=== PATIENT | female | born 1955 | race Caucasian/White ===

== ENCOUNTER 2018-12-24 00:26 | Emergency (ER) | payer MEDICARE, MEDICAID ==
--- NOTE | 2018-12-24 00:28 | ER Report ---
History and Physical Time Seen By MD: 00:26 HPI/ROS CHIEF COMPLAINT: Shortness of breath HISTORY OF PRESENT ILLNESS: 63-year-old female with a history of cardiac ablation 3 and COPD O2 dependent on 4 L at night. Presents with increasing shortness of breath since this afternoon. She denies chest pain, diaphoresis or leg swelling. She denies infectious symptoms or productive cough. Patient recently moved here to [facility] from [place]. Patient admits she is on by 10 or 12 medications. She forgot to bring her medications with her to the hospital. She does remember that she is on Bumex. She forgot to take her Bumex yesterday. REVIEW OF SYSTEMS: Respiratory: As above Cardiovascular: No chest pain, no palpitations. Gastrointestinal: No vomiting, no abdominal pain. Musculoskeletal: No back pain. Allergies: Coded Allergies: Sulfa (Sulfonamide Antibiotics) (Verified Allergy, Severe, RASH, SWELLING, 12/24/18) cefazolin (Verified Allergy, Severe, RASH, SWELLING, 12/24/18) Penicillins (Verified Allergy, Unknown, RASH, SWELLING, 12/24/18) Home Meds Active Scripts Prednisone (PREDNISONE) 20 Mg Tablet, 20 MG PO QDAY for reduce lung inflammation, #9 TAB 2 by mouth daily for 3 days then 1 by mouth daily for 3 days Prov:FLOYD MONTES DE OCA DO 12/24/18 Reviewed Nurses Notes: Yes Old Medical Records Reviewed: Yes Constitutional Vital Sign - Last 24 Hours 12/24/18 12/24/18 12/24/18 12/24/18 00:31 00:32 00:41 00:41 Temp 98.6 Pulse 89 83 Resp 28 31 B/P (MAP) 190/91 190/91 (124) Pulse Ox 61 96 O2 Delivery Room Air O2 Flow Rate 6.0 12/24/18 12/24/18 12/24/18 12/24/18 00:44 00:46 00:56 01:00 Pulse 82 84 87 Resp 30 24 10 B/P (MAP) 174/88 (116) Pulse Ox 91 12/24/18 12/24/18 12/24/18 12/24/18 01:20 01:30 01:35 01:50 Pulse 87 88 87 Resp 12 8 17 B/P (MAP) 172/108 (129) Pulse Ox 91 96 92 612/24/18 12/24/18 12/24/18 02:00 02:05 02:20 02:35 Pulse 86 87 105 B/P (MAP) 158/96 (116) Pulse Ox 93 12/24/18 12/24/18 12/24/18 12/24/18 03:00 03:20 03:35 03:36 Pulse 89 90 89 Resp 26 12 24 B/P (MAP) 163/99 (120) Pulse Ox 99 97 12/24/18 12/24/18 12/24/18 12/24/18 03:40 03:41 03:54 03:55 Pulse 91 88 93 Resp 14 24 34 B/P (MAP) 136/96 (109) Pulse Ox 96 95 12/24/18 12/24/18 12/24/18 12/24/18 03:57 04:00 04:03 04:10 Pulse 101 B/P (MAP) 136/112 (120) 157/96 (116) O2 Flow Rate 4.0 12/24/18 12/24/18 04:20 04:25 Pulse 92 Resp 11 B/P (MAP) 168/95 (119) Physical Exam General Appearance: The patient is alert, has no immediate need for airway protection and no current signs of toxicity. Obvious air hunger, increased work of breathing. Patient arrived without wearing supplemental O2. Room air pulse ox was 61% on room air. She was placed on 6 L to get to 89%. A Shantz slightly pale and diaphoretic HEENT: Pupils equal and round no injection. Oropharynx without redness or exudate, mucous. Membranes are moist Respiratory: Chest is non tender, decreased breath sounds throughout., No rhonchi or rails Cardiac: regular rate and rhythm Gastrointestinal: Abdomen is soft and non tender, no masses, bowel sounds normal. Musculoskeletal: Neck: Neck is supple and non tender. No JVD, no lymphadenopathy Extremities have full range of motion and are non tender. No edema, no calf tenderness Skin: No rashes or lesions. DIFFERENTIAL DIAGNOSIS: After history and physical exam differential diagnosis was considered for shortness of breath including but not limited to pulmonary infectious process, COPD, asthma, pulmonary embolus and congestive heart failure. Medical Decision Making Data Points Result Diagram: 12/24/18 0055 12/24/18 0055 Laboratory Hematology Test 12/24/18 00:55 12/24/18 03:09 Red Blood Count 4.29 M/uL (4.17-5.56) Mean Corpuscular Volume 84.4 fL (80.0-96.0) Mean Corpuscular Hemoglobin 28.0 pg (26.0-33.0) Mean Corpuscular Hemoglobin Concent 33.2 g/dL (32.0-36.0) Red Cell Distribution Width 16.6 % (11.5-14.5) Mean Platelet Volume 8.0 fL (7.2-11.1) Neutrophils (%) (Auto) 80.5 % (39.4-72.5) Lymphocytes (%) (Auto) 12.7 % (17.6-49.6) Monocytes (%) (Auto) 4.5 % (4.1-12.4) Eosinophils (%) (Auto) 1.2 % (0.4-6.7) Basophils (%) (Auto) 1.1 % (0.3-1.4) Nucleated RBC Relative Count (auto) 0.0 /100WBC Neutrophils # (Auto) 7.4 K/uL (2.0-7.4) Lymphocytes # (Auto) 1.2 K/uL (1.3-3.6) Monocytes # (Auto) 0.4 K/uL (0.3-1.0) Eosinophils # (Auto) 0.1 K/uL (0.0-0.5) Basophils # (Auto) 0.1 K/uL (0.0-0.1) Nucleated RBC Absolute Count (auto) 0.00 K/uL D-Dimer Quantitative (PE/DVT) 0.72 ug/ml (0-0.50) Sodium Level 140 mmol/L (137-145) Potassium Level 3.7 mmol/L (3.5-5.0) Chloride Level 101 mmol/L (98-107) Carbon Dioxide Level 31 mmol/L (22-31) Blood Urea Nitrogen 13 mg/dl (7-18) Creatinine 0.50 mg/dl (0.52-1.04) Glomerular Filtration Rate Calc > 60.0 Random Glucose 274 mg/dl (75-110) Lactate 1.8 mmol/L (0.7-2.1) Calcium Level 8.6 mg/dl (8.4-10.2) Total Bilirubin 1.6 mg/dl (0.2-1.3) Aspartate Amino Transf (AST/SGOT) 17 U/L (0-35) Alanine Aminotransferase (ALT/SGPT) 36 U/L (0-56) Alkaline Phosphatase 169 U/L (0-126) Troponin I < 0.012 ng/ml B-Type Natriuretic Peptide 242 pg/ml (0-100) Total Protein 6.5 g/dl (6.3-8.2) Albumin 3.7 g/dl (3.5-5.0) Urine Color Straw Urine Clarity Clear Urine pH 5.0 pH (4.8-9.5) Urine Specific [place] 1.014 Urine Protein Negative mg/dL (NEGATIVE) Urine Glucose (UA) 50 mg/dL (NEGATIVE) Urine Ketones Negative mg/dL (NEGATIVE) Urine Blood Negative (NEGATIVE) Urine Nitrite Negative (NEGATIVE) Urine Bilirubin Negative (NEGATIVE) Urine Urobilinogen Negative mg/dL (0.2-1.9) Urine Leukocyte Esterase Negative (NEGATIVE) Urine RBC None /HPF (0-2/HPF) Urine WBC <1 /HPF (0-5/HPF) Urine Squamous Epithelial Cells Many /LPF (</=FEW) Urine Transitional Epithelial Cells Few /LPF (NONE-FEW) Urine Bacteria Negative /HPF (NONE-FEW) Urine Mucus None /HPF (NONE-FEW) Chemistry Test 12/24/18 00:55 12/24/18 03:09 White Blood Count 9.2 k/uL (4.5-11.0) Red Blood Count 4.29 M/uL (4.17-5.56) Hemoglobin 12.0 g/dL (12.0-16.0) Hematocrit 36.2 % (34.0-47.0) Mean Corpuscular Volume 84.4 fL (80.0-96.0) Mean Corpuscular Hemoglobin 28.0 pg (26.0-33.0) Mean Corpuscular Hemoglobin Concent 33.2 g/dL (32.0-36.0) Red Cell Distribution Width 16.6 % (11.5-14.5) Platelet Count 313 K/uL (150-450) Mean Platelet Volume 8.0 fL (7.2-11.1) Neutrophils (%) (Auto) 80.5 % (39.4-72.5) Lymphocytes (%) (Auto) 12.7 % (17.6-49.6) Monocytes (%) (Auto) 4.5 % (4.1-12.4) Eosinophils (%) (Auto) 1.2 % (0.4-6.7) Basophils (%) (Auto) 1.1 % (0.3-1.4) Nucleated RBC Relative Count (auto) 0.0 /100WBC Neutrophils # (Auto) 7.4 K/uL (2.0-7.4) Lymphocytes # (Auto) 1.2 K/uL (1.3-3.6) Monocytes # (Auto) 0.4 K/uL (0.3-1.0) Eosinophils # (Auto) 0.1 K/uL (0.0-0.5) Basophils # (Auto) 0.1 K/uL (0.0-0.1) Nucleated RBC Absolute Count (auto) 0.00 K/uL D-Dimer Quantitative (PE/DVT) 0.72 ug/ml (0-0.50) Glomerular Filtration Rate Calc > 60.0 Lactate 1.8 mmol/L (0.7-2.1) Calcium Level 8.6 mg/dl (8.4-10.2) Total Bilirubin 1.6 mg/dl (0.2-1.3) Aspartate Amino Transf (AST/SGOT) 17 U/L (0-35) Alanine Aminotransferase (ALT/SGPT) 36 U/L (0-56) Alkaline Phosphatase 169 U/L (0-126) Troponin I < 0.012 ng/ml B-Type Natriuretic Peptide 242 pg/ml (0-100) Total Protein 6.5 g/dl (6.3-8.2) Albumin 3.7 g/dl (3.5-5.0) Urine Color Straw Urine Clarity Clear Urine pH 5.0 pH (4.8-9.5) Urine Specific [place] 1.014 Urine Protein Negative mg/dL (NEGATIVE) Urine Glucose (UA) 50 mg/dL (NEGATIVE) Urine Ketones Negative mg/dL (NEGATIVE) Urine Blood Negative (NEGATIVE) Urine Nitrite Negative (NEGATIVE) Urine Bilirubin Negative (NEGATIVE) Urine Urobilinogen Negative mg/dL (0.2-1.9) Urine Leukocyte Esterase Negative (NEGATIVE) Urine RBC None /HPF (0-2/HPF) Urine WBC <1 /HPF (0-5/HPF) Urine Squamous Epithelial Cells Many /LPF (</=FEW) Urine Transitional Epithelial Cells Few /LPF (NONE-FEW) Urine Bacteria Negative /HPF (NONE-FEW) Urine Mucus None /HPF (NONE-FEW) Coagulation Test 12/24/18 00:55 D-Dimer Quantitative (PE/DVT) 0.72 ug/ml Urinalysis Test 12/24/18 03:09 Urine Color Straw Urine Clarity Clear Urine pH 5.0 pH (4.8-9.5) Urine Specific [place] 1.014 Urine Protein Negative mg/dL (NEGATIVE) Urine Glucose (UA) 50 mg/dL (NEGATIVE) Urine Ketones Negative mg/dL (NEGATIVE) Urine Blood Negative (NEGATIVE) Urine Nitrite Negative (NEGATIVE) Urine Bilirubin Negative (NEGATIVE) Urine Urobilinogen Negative mg/dL (0.2-1.9) Urine Leukocyte Esterase Negative (NEGATIVE) Urine RBC None /HPF (0-2/HPF) Urine WBC <1 /HPF (0-5/HPF) Urine Squamous Epithelial Cells Many /LPF (</=FEW) Urine Transitional Epithelial Cells Few /LPF (NONE-FEW) Urine Bacteria Negative /HPF (NONE-FEW) Urine Mucus None /HPF (NONE-FEW) Microbiology Microbiology Date/Time Source Procedure Growth Status 12/24/18 01:25 Blood Peripheral Draw Blood Culture - Preliminary NO GROWTH SO FAR, SET LATE. REINCUBATED Resulted 12/24/18 00:55 Blood Peripheral Draw Blood Culture - Preliminary NO GROWTH SO FAR, SET LATE. REINCUBATED Resulted EKG/Imaging EKG Interpretation 12 lead EK Rhythm: Normal sinus rhythm, rate 84 bpm [place]: normal QRS: normal ST segments: normal, no evidence of ischemia or dysrhythmia, no old EKGs for comparison Monitor Interpretation: Normal Sinus Rhythm Imaging X-ray: Single view portable chest x-ray was obtained. I viewed the images myself on the PACS system. My interpretation of the images is: Bilateral pulmonary vascular congestion, cardiomegaly,? Left pleural effusion, there are no previous chest x-rays for comparison. The radiologist interpretation had no clinically significant variation from this interpretation. Results: CT scan of the CTA pulmonary angiogram was obtained. The results of the study are: CT CTA CHEST W & W/O CON HISTORY: Dyspnea with elevated d-dimer. TECHNIQUE: CTA chest with intravenous contrast attention to pulmonary arteries. Sagittal, coronal and slab 3D MIP coronal reconstructed images were also created for further evaluation and interpretation. One of the following dose optimization techniques was utilized in the performance of this exam: Automated exposure control; adjustment of the mA and/or kV according to the patient's size; or use of an iterative reconstruction technique. Specific details can be referenced in the facility's radiology CT exam operational policy. CONTRAST: 75 mL Isovue-370. COMPARISON: None. FINDINGS: Heart/vessels: Satisfactory opacification of the pulmonary arteries without visualized pulmonary embolus. Moderate calcifications within the coronary arteries. Prominence of the main pulmonary artery measuring up to 4.3 cm which is nonspecific however can be seen in setting of pulmonary to hypertension. Mild atherosclerosis within the thoracic aorta. Mediastinum: Negative. Lymph nodes: Multiple borderline prominent carinal and hilar lymph nodes. For example, a right paratracheal lymph node measures approximately 16 x 16 mm (image 21 of series 4). Lungs/pleura: Trace bilateral pleural effusions. Heterogeneous groundglass throughout the lungs is nonspecific however likely related to heterogeneous perfusion and/or air trapping. Cannot completely exclude edema. Visualized upper abdomen: Negative. Bones/soft tissues: Negative. IMPRESSION: 1. No acute findings. Negative for pulmonary embolus. 2. Trace bilateral pleural effusions use heterogeneous groundglass throughout the lungs which is nonspecific however may be related to heterogeneous perfusion, air trapping, and/or pulmonary edema. 3. Numerous nonspecific borderline prominent and subcentimeter mediastinal/hilar lymph nodes. Consider 3 month follow-up there is concern for malignancy. 4. Additional incidental/chronic findings, as above. The study was read by the radiologist. I viewed the images myself on the PACS system. ED Course/Re-evaluation Clinical Indication for ER IV: IV Access ED Course Patient was admitted to an examination room. H&P was done. The differential diagnoses was considered. On clinical examination. She appears to have COPD exacerbation with congestive heart failure exacerbation. Her EKG was unremarkable. Her troponin was negative. Her BMP was slightly elevated. Her chest x-ray shows pulmonary vascular congestion. Her d-dimer was elevated, so a CTA pulmonary injury gram was performed. Patient was treated with IV steroids, DuoNeb's. Nitropaste was used to bring down her pressure and unload her heart. She was treated with Bumex 2 mg by mouth and had diuresis. She is feeling much better and feels like she is at her baseline oxygen. She would like to go home. She will be discharged home. I did suggest admission might be a better option as she is somewhat of a cardiac and respiratory cripple and she might likely experience exacerbation in the next few hours. I advised her to wear her oxygen 24 hours a day and follow-up with her primary care doctor next week. I think that she may not be able to live at this elevation. I mentioned this to her. 12/24/2018 3:54:01 am patient reports feeling much improved. She's had significant diuresis of fluid. She would like to go home. I will prescribe prednisone and advised to take all of her medicines as prescribed and follow-up with her doctor early next week. He is advised to have a low threshold to return for any worsening Decision to Disposition Date: Dec 24, 2018 Decision to Disposition Time: 03:39 Critical Care Time I spent a total of 60 minutes of critical care time in obtaining history, performing a physical exam, bedside monitoring of interventions, collecting and interpreting tests and discussion with consultants but not including time spent performing procedures. Depart Departure Latest Vital Signs Vital Signs Date Time Temp Pulse Resp B/P (MAP) Pulse Ox O2 Delivery O2 Flow Rate FiO2 12/24/18 04:25 92 11 12/24/18 04:20 168/95 (119) 12/24/18 03:57 4.0 12/24/18 03:55 95 12/24/18 00:31 98.6 Room Air Impression: Primary Impression: COPD exacerbation Additional Impression: Congestive heart failure Condition: Improved Disposition: HOME OR SELF-CARE New Scripts Prednisone (PREDNISONE) 20 Mg Tablet 20 MG PO QDAY for reduce lung inflammation, #9 TAB 2 by mouth daily for 3 days then 1 by mouth daily for 3 days Prov: FLOYD MONTES DE OCA DO 12/24/18 Patient Instructions: COPD (Chronic Obstructive Pulmonary Disease) (ED), Heart Failure (ED) Additional Instructions: Take all of your medications as prescribed Follow-up with your primary care physician early next week Return to the ER for any worsening Problem Qualifiers Additional Impression: Congestive heart failure Heart failure type: unspecified Heart failure chronicity: acute Qualified Codes: I50.9 - Heart failure, unspecified FLOYD MONTES DE OCA DO Dec 24, 2018 00:28
[2018-12-24] MEDS ORDERED: methylPREDNIS SUCC 125 MG/2ML IVP ONE (00:35)
[2018-12-24] MEDS ORDERED: ALBUTEROL/IPRATROPIUM 3 ML NEB NEB ONE ×2 (00:35→03:25)
[2018-12-24] MEDS ORDERED: NITROGLYCERIN OINT 1 GM PKT TP ONE (00:45)
--- NOTE | 2018-12-24 00:49 | EKG ---
FACILITY: [facility] PATIENT NAME: NIKKO KWON : [id number] MR: [id number] V: [id number] EXAM DATE: ORDERING PHYSICIAN: FLOYD MONTES DE OCA TECHNOLOGIST: COURT Test Reason : DYSPNEA Blood Pressure : / mmHG Vent. Rate : 084 BPM Atrial Rate : 084 BPM P-R Int : 180 ms QRS Dur : 092 ms QT Int : 402 ms P-R-T Axes : 083 040 044 degrees QTc Int : 475 ms Sinus rhythm Decreased R wave progression anteriorly Artifact in several limb leads - repeat if needed No previous ECGs available Confirmed by HAZEL VAZ ([id number]) on 12/24/2018 6:28:35 AM Referred By: Confirmed By:HAZEL VAZ
--- NOTE | 2018-12-24 01:06 | RADIOLOGY IMAGING REPORT ---
FACILITY: [facility] [place] PATIENT NAME: Margareth Mendez : 1955 MR: [id number] V: [id number] EXAM DATE: ORDERING PHYSICIAN: FLOYD MONTES DE OCA TECHNOLOGIST: [place] [facility] [place]: Margareth Mendez : 1955 Visit/Account:[id number] Date of Sevice: 12/24/2018 PORTABLE CHEST: Indication: Dyspnea. Technique: A single frontal film was obtained. Comparison: None available. Skeletal and soft tissue structures: Intact and unremarkable. Heart and mediastinum: The heart appears upper limits of normal in size. Lung kraus: Hypoexpanded. There appears to be pulmonary vascular congestion. No focal consolidation or volume loss is clearly identified. Pleural spaces: No evidence of pneumothorax or significant effusion. Impression: Pulmonary vascular congestion is suspected. Report Dictated By: Florian Kuo MD at 12/24/2018 12:58 AM Report E-Signed By: Florian Kuo MD at 12/24/2018 1:01 AM WSN:[id number]
[2018-12-24 01:17] LABS: PLATELET COUNT, AUTOMATED 313 K/uL (150-450)
[2018-12-24] MEDS ORDERED: BUMETANIDE 2 MG TAB PO ONE (01:25)
[2018-12-24] MEDS ORDERED: IOPAMIDOL 76% 100 ML INFUS BTL 100 ML ONE (02:27)
[2018-12-24] MEDS ORDERED: NS(*) 0.9% 50 ML BAG 50 ML ONE (02:27)
--- NOTE | 2018-12-24 03:22 | RADIOLOGY IMAGING REPORT ---
FACILITY: [facility] [place] PATIENT NAME: Margareth Mendez : 1955 MR: [id number] V: [id number] EXAM DATE: ORDERING PHYSICIAN: FLOYD MONTES DE OCA TECHNOLOGIST: Location: [facility] [place] Patient: Margareth Mendez : 1955 Visit/Account:[id number] Date of Sevice: 12/24/2018 CT CTA CHEST W & W/O CON HISTORY: Dyspnea with elevated d-dimer. TECHNIQUE: CTA chest with intravenous contrast attention to pulmonary arteries. Sagittal, coronal a nd slab 3D MIP coronal reconstructed images were also created for further evaluation and interpretati on. One of the following dose optimization techniques was utilized in the performance of this exam: Autom ated exposure control; adjustment of the mA and/or kV according to the patient's size; or use of an i terative reconstruction technique. Specific details can be referenced in the facility's radiology CT exam operational policy. CONTRAST: 75 mL Isovue-370. COMPARISON: None. FINDINGS: Heart/vessels: Satisfactory opacification of the pulmonary arteries without visualized pulmonary emb olus. Moderate calcifications within the coronary arteries. Prominence of the main pulmonary artery m easuring up to 4.3 cm which is nonspecific however can be seen in setting of pulmonary to hypertensio n. Mild atherosclerosis within the thoracic aorta. Mediastinum: Negative. Lymph nodes: Multiple borderline prominent carinal and hilar lymph nodes. For example, a right parat roddy lymph node measures approximately 16 x 16 mm (image 21 of series 4). Lungs/pleura: Trace bilateral pleural effusions. Heterogeneous groundglass throughout the lungs is n onspecific however likely related to heterogeneous perfusion and/or air trapping. Cannot completely e xclude edema. Visualized upper abdomen: Negative. Bones/soft tissues: Negative. IMPRESSION: 1. No acute findings. Negative for pulmonary embolus. 2. Trace bilateral pleural effusions use heterogeneous groundglass throughout the lungs which is nons pecific however may be related to heterogeneous perfusion, air trapping, and/or pulmonary edema. 3. Numerous nonspecific borderline prominent and subcentimeter mediastinal/hilar lymph nodes. Conside r 3 month follow-up there is concern for malignancy. 4. Additional incidental/chronic findings, as above. Report Dictated By: Nishant Crouch MD at 12/24/2018 2:54 AM Report E-Signed By: Nishant Crouch MD at 12/24/2018 2:59 AM WSN:[id number]
[2018-12-24] MEDS ORDERED: PRED20TA6 PO (03:58)
[2018-12-24 04:20] VITALS: BP 168/95
== END 2018-12-24 04:34 | disposition home or self-care (01) ==
LOC: ER 00:30
DX: J44.1 Chronic obstructive pulmonary disease with (acute) exacerbation (principal); I50.9 Heart failure, unspecified
CPT/HCPCS: 71045; 71275; 81001; 83605; 83880; 84484; 85025; 85379; 87040; 93005; 94640; 96374; 99284; A9270; J2930; J7050; J7620; Q9967; 82040; 82247; 82310; 82374; 82435; 82565; 82947; 84075; 84132; 84155; 84295; 84450; 84460; 84520

== ENCOUNTER 2019-01-16 14:38 | Emergency (ER) | payer MEDICARE, MEDICAID ==
[~2019-01-16 14:38] MED LIST: PRED20TA6 PO
--- NOTE | 2019-01-16 14:49 | ER Report ---
History and Physical Time Seen By MD: 14:47 Hx. of Stated Complaint: PRESENTS WITH WHEEZING, TACHYPNEA AND SATS IN LOW 80S ON 2L NC (HOME). HX COPD, SYMPTOMS X 1 DAY HPI/ROS CHIEF COMPLAINT: Shortness of breath HISTORY OF PRESENT ILLNESS: 63-year-old female patient persists to emergency room with complaints shortness of breath. Patient states that she has been having shortness of breath for the past day. She states she woke up this morning 4:00 was I will back to sleep issues and such difficult time breathing. She denies having any fevers, chills, nausea, vomiting or diarrhea. Patient states she's not had a cough. She believes she is having exacerbation of her COPD. She states that she was recently seen, one month ago, with a COPD exacerbation. She states she was discharged home with prednisone and that really seemed to help considerably. She would like to do that again. REVIEW OF SYSTEMS: Respiratory: As noted above Cardiovascular: No chest pain, no palpitations. Gastrointestinal: No vomiting, no abdominal pain. Musculoskeletal: No back pain. Allergies: Coded Allergies: Sulfa (Sulfonamide Antibiotics) (Verified Allergy, Severe, RASH, SWELLING, 01/16/19) cefazolin (Verified Allergy, Severe, RASH, SWELLING, 01/16/19) Penicillins (Verified Allergy, Unknown, RASH, SWELLING, 01/16/19) Home Meds Active Scripts Azithromycin 250 Mg Tab (AZITHROMYCIN 250 MG TAB) 250 Mg Tablet, 1 TAB PO QDAY, #6 TAB Take 2 tabs today and then 1 tab a day until gone. Prov:LEYDI EDGE 01/16/19 Prednisone (PREDNISONE) 20 Mg Tablet, 20 MG PO BID, #10 TAB Prov:LEYDI EDGE 01/16/19 Prednisone (PREDNISONE) 20 Mg Tablet, 20 MG PO QDAY for reduce lung inflammation, #9 TAB 2 by mouth daily for 3 days then 1 by mouth daily for 3 days Prov:FLOYD MONTES DE OCA DO 12/24/18 Past Medical/Surgical History Patient has a past medical history of A. fib, COPD. Patient has a surgical history of cardiac ablation, cholecystectomy, wrist surgery 3. Reviewed Nurses Notes: Yes Hx Substance Use Disorder: No Constitutional Vital Sign - Last 24 Hours 01/16/19 01/16/19 01/16/19 01/16/19 14:42 14:43 15:00 15:02 Temp 97.7 Pulse 80 Resp 28 B/P (MAP) 187/94 (125) 187/94 162/77 (105) Pulse Ox 92 94 O2 Delivery Nasal Cannula Nasal Cannula O2 Flow Rate 5.0 01/16/19 01/16/19 01/16/19 01/16/19 15:02 15:08 15:08 15:08 Pulse 70 71 71 Resp 16 34 16 Pulse Ox 90 95 O2 Delivery Nasal Cannula O2 Flow Rate 4.0 01/16/19 01/16/19 01/16/19 01/16/19 15:10 15:13 15:30 15:43 Pulse 72 71 Resp 36 29 B/P (MAP) 162/70 (100) Pulse Ox 90 93 O2 Flow Rate 4.0 01/16/19 01/16/19 16:00 16:13 Pulse 73 Resp 20 B/P (MAP) 161/86 (111) Pulse Ox 91 Physical Exam General Appearance: The patient is alert, has no immediate need for airway protection and no current signs of toxicity. Respiratory: Chest is non tender, lungs are tight with wheezes to auscultation. Cardiac: regular rate and rhythm Gastrointestinal: Abdomen is soft and non tender, no masses, bowel sounds normal. Musculoskeletal: Neck: Neck is supple and non tender. Extremities have full range of motion and are non tender. Skin: No rashes or lesions. DIFFERENTIAL DIAGNOSIS: After history and physical exam differential diagnosis was considered for shortness of breath including but not limited to pulmonary infectious process, COPD, asthma, pulmonary embolus and congestive heart failure. Medical Decision Making Data Points Result Diagram: 01/16/19 1500 01/16/19 1500 Laboratory Hematology Test 01/16/19 15:00 Red Blood Count 4.00 M/uL (4.17-5.56) Mean Corpuscular Volume 85.4 fL (80.0-96.0) Mean Corpuscular Hemoglobin 27.9 pg (26.0-33.0) Mean Corpuscular Hemoglobin Concent 32.7 g/dL (32.0-36.0) Red Cell Distribution Width 18.0 % (11.5-14.5) Mean Platelet Volume 8.0 fL (7.2-11.1) Neutrophils (%) (Auto) 74.7 % (39.4-72.5) Lymphocytes (%) (Auto) 17.4 % (17.6-49.6) Monocytes (%) (Auto) 5.9 % (4.1-12.4) Eosinophils (%) (Auto) 1.0 % (0.4-6.7) Basophils (%) (Auto) 1.0 % (0.3-1.4) Nucleated RBC Relative Count (auto) 0.1 /100WBC Neutrophils # (Auto) 6.0 K/uL (2.0-7.4) Lymphocytes # (Auto) 1.4 K/uL (1.3-3.6) Monocytes # (Auto) 0.5 K/uL (0.3-1.0) Eosinophils # (Auto) 0.1 K/uL (0.0-0.5) Basophils # (Auto) 0.1 K/uL (0.0-0.1) Nucleated RBC Absolute Count (auto) 0.01 K/uL Sodium Level 142 mmol/L (137-145) Potassium Level 3.9 mmol/L (3.5-5.0) Chloride Level 105 mmol/L (98-107) Carbon Dioxide Level 26 mmol/L (22-31) Blood Urea Nitrogen 15 mg/dl (7-18) Creatinine 0.60 mg/dl (0.52-1.04) Glomerular Filtration Rate Calc > 60.0 Random Glucose 125 mg/dl (75-110) Calcium Level 8.5 mg/dl (8.4-10.2) Total Bilirubin 1.7 mg/dl (0.2-1.3) Aspartate Amino Transf (AST/SGOT) 17 U/L (0-35) Alanine Aminotransferase (ALT/SGPT) 28 U/L (0-56) Alkaline Phosphatase 128 U/L (0-126) Troponin I < 0.012 ng/ml B-Type Natriuretic Peptide 330 pg/ml (0-100) Total Protein 6.4 g/dl (6.3-8.2) Albumin 3.8 g/dl (3.5-5.0) Chemistry Test 01/16/19 15:00 White Blood Count 8.0 k/uL (4.5-11.0) Red Blood Count 4.00 M/uL (4.17-5.56) Hemoglobin 11.2 g/dL (12.0-16.0) Hematocrit 34.2 % (34.0-47.0) Mean Corpuscular Volume 85.4 fL (80.0-96.0) Mean Corpuscular Hemoglobin 27.9 pg (26.0-33.0) Mean Corpuscular Hemoglobin Concent 32.7 g/dL (32.0-36.0) Red Cell Distribution Width 18.0 % (11.5-14.5) Platelet Count 357 K/uL (150-450) Mean Platelet Volume 8.0 fL (7.2-11.1) Neutrophils (%) (Auto) 74.7 % (39.4-72.5) Lymphocytes (%) (Auto) 17.4 % (17.6-49.6) Monocytes (%) (Auto) 5.9 % (4.1-12.4) Eosinophils (%) (Auto) 1.0 % (0.4-6.7) Basophils (%) (Auto) 1.0 % (0.3-1.4) Nucleated RBC Relative Count (auto) 0.1 /100WBC Neutrophils # (Auto) 6.0 K/uL (2.0-7.4) Lymphocytes # (Auto) 1.4 K/uL (1.3-3.6) Monocytes # (Auto) 0.5 K/uL (0.3-1.0) Eosinophils # (Auto) 0.1 K/uL (0.0-0.5) Basophils # (Auto) 0.1 K/uL (0.0-0.1) Nucleated RBC Absolute Count (auto) 0.01 K/uL Glomerular Filtration Rate Calc > 60.0 Calcium Level 8.5 mg/dl (8.4-10.2) Total Bilirubin 1.7 mg/dl (0.2-1.3) Aspartate Amino Transf (AST/SGOT) 17 U/L (0-35) Alanine Aminotransferase (ALT/SGPT) 28 U/L (0-56) Alkaline Phosphatase 128 U/L (0-126) Troponin I < 0.012 ng/ml B-Type Natriuretic Peptide 330 pg/ml (0-100) Total Protein 6.4 g/dl (6.3-8.2) Albumin 3.8 g/dl (3.5-5.0) EKG/Imaging Imaging Study: Frontal and lateral views of the chest Indication: History distress Comparison study: December 24, 2018 Findings: PA and lateral views of the chest demonstrate no evidence of acute infiltrate. There is no evidence of pleural effusion. There is no evidence of pneumothorax. There is mild cardiomegaly present. There is no evidence of active congestive failure. The visualized bony structures are unremarkable. IMPRESSION: Mild cardiomegaly. No acute cardiothoracic abnormality identified. Report Dictated By: Zeferino Peterson at 01/16/2019 3:46 PM Report E-Signed By: Zeferino Peterson at 01/16/2019 3:50 PM ED Course/Re-evaluation ED Course Patient was admitted on exam room, history and physical were obtained. Differential diagnoses were considered. On examination lungs are diminished with wheezes, heart regular, abdomen is soft and nontender. An IV was started, CBC, CMP, chest x-ray, EKG, troponin, BNP were done. Patient had no elevated white count, chest x-ray showed no acute cardiopulmonary processes, EKG showed a normal sinus rhythm, troponin was negative, BNP was elevated at 300. Is up from last time she was in the emergency room on December 24. I discussed the findings with the patient. We will go ahead and discharge her home at this time. Patient will be started on steroids for COPD exacerbation and the patient will be given azithromycin. With the elevated BNP I did discuss with her about following up with primary care provider to discuss starting her on diuretics. Patient states she does have direct home but has not been taking those. I did recommend that she take her diuretics. Patient verbalized understanding and agreement with plan. Decision to Disposition Date: Jan 16, 2019 Decision to Disposition Time: 16:08 Depart Departure Latest Vital Signs Vital Signs Date Time Temp Pulse Resp B/P (MAP) Pulse Ox O2 Delivery O2 Flow Rate FiO2 01/16/19 16:13 73 20 91 01/16/19 16:00 161/86 (111) 01/16/19 15:10 4.0 01/16/19 15:08 Nasal Cannula 01/16/19 14:43 97.7 Impression: Primary Impression: COPD exacerbation Condition: Improved Disposition: HOME OR SELF-CARE Referrals: LA LUCIA DO (PCP) New Scripts Azithromycin 250 Mg Tab (AZITHROMYCIN 250 MG TAB) 250 Mg Tablet 1 TAB PO QDAY, #6 TAB Take 2 tabs today and then 1 tab a day until gone. Prov: LEYDI EDGE 01/16/19 Prednisone (PREDNISONE) 20 Mg Tablet 20 MG PO BID, #10 TAB Prov: LEYDI EDGE 01/16/19 Patient Instructions: COPD (Chronic Obstructive Pulmonary Disease) (ED) Additional Instructions: Increase fluid intake. Get plenty of rest. Take medication as prescribed. Follow-up with your primary care provider this week. Make sure that your taking your diuretic as prescribed. Return to emergency room if condition worsens. LEYDI EDGE Jan 16, 2019 14:49
[2019-01-16] MEDS ORDERED: NS(*) 0.9% 500 ML BAG 500 ML IV ONE (14:53)
[2019-01-16] MEDS ORDERED: ALBUTEROL/IPRATROPIUM 3 ML NEB NEB ONE (14:55)
[2019-01-16] MEDS ORDERED: methylPREDNIS SUCC 125 MG/2ML IVP ONE (14:55)
--- NOTE | 2019-01-16 15:02 | EKG ---
FACILITY: [facility] PATIENT NAME: NIKKO KWON : [id number] MR: [id number] V: [id number] EXAM DATE: ORDERING PHYSICIAN: LEYDI EDGE TECHNOLOGIST: PINO Story Reason : Blood Pressure : / mmHG Vent. Rate : 077 BPM Atrial Rate : 077 BPM P-R Int : 178 ms QRS Dur : 086 ms QT Int : 424 ms P-R-T Axes : 084 052 047 degrees QTc Int : 479 ms Sinus rhythm Artifact in multiple leads - repeat if needed Decreased R wave progression anteriorly Similar to previous EKG Confirmed by HAZEL VAZ ([id number] on 01/16/2019 7:42:59 PM Referred By: Confirmed By:HAZEL VAZ
[2019-01-16 15:20] LABS: PLATELET COUNT, AUTOMATED 357 K/uL (150-450)
--- NOTE | 2019-01-16 15:57 | RADIOLOGY IMAGING REPORT ---
FACILITY: [facility] - [place] PATIENT NAME: Margareth Mendez : 1955 MR: [id number] V: [id number] EXAM DATE: ORDERING PHYSICIAN: LEYDI EDGE TECHNOLOGIST: [place] [facility] [place]areth M[place] : 1955 Visit/Account:[id number] Date of Sevice: 01/16/2019 Study: Frontal and lateral views of the chest Indication: History distress Comparison study: December 24, 2018 Findings: PA and lateral views of the chest demonstrate no evidence of acute infiltrate. There is no evidence of pleural effusion. There is no evidence of pneumothorax. There is mild cardiomegaly present. There is no evidence of active congestive failure. The visualized bony structures are unremarkable. IMPRESSION: Mild cardiomegaly. No acute cardiothoracic abnormality identified. Report Dictated By: Zeferino Peterson at 01/16/2019 3:46 PM Report E-Signed By: Zeferino Peterson at 01/16/2019 3:50 PM WSN:[id number]
[2019-01-16 16:00] VITALS: BP 161/86
[2019-01-16] MEDS ORDERED: AZIT-18 PO (16:12)
[2019-01-16] MEDS ORDERED: PRED20TA6 PO (16:12)
== END 2019-01-16 16:28 | disposition home or self-care (01) ==
LOC: ER 15:00
DX: J44.1 Chronic obstructive pulmonary disease with (acute) exacerbation (principal)
CPT/HCPCS: 71046; 83880; 84484; 85025; 93005; 94640; 96361; 96374; 99284; J2930; J7040; J7620; 82040; 82247; 82310; 82374; 82435; 82565; 82947; 84075; 84132; 84155; 84295; 84450; 84460; 84520

== ENCOUNTER → 2019-02-20 | Outpatient (CLI) | payer MEDICAID, MEDICARE ==
[~2019-02-20] MED LIST changes: +APIX5TAB PO; +ARIP10TA4 PO; +ATOR40TA24 PO; +AZIT-18 PO; +BUME1TAB21 PO; +ESCI20TA38 PO; +FLE100 PO; +IPR14R INH; +LEVI SUBQ; +LEVO-3 PO; +LIDO700A19 TD; +MAGN400T36 PO; +METF-450 PO; +METH20CP PO; +METO25TA93 PO; +POTA-23 PO; +TRAM-420 PO; +VALA100059 PO
== END ==
LOC: LAB 10:34
PROVIDERS: ATTEND Nurse Practitioner
DX: E03.9 Hypothyroidism, unspecified (principal)
CPT/HCPCS: 36415; 84439; 84443

== ENCOUNTER 2019-02-21 09:18 | Emergency (ER) | payer MEDICAID, MEDICARE ==
[~2019-02-21 09:18] MED LIST changes: -APIX5TAB PO; -ARIP10TA4 PO; -ATOR40TA24 PO; -BUME1TAB21 PO; -ESCI20TA38 PO; -FLE100 PO; -IPR14R INH; -LEVI SUBQ; -LEVO-3 PO; -LIDO700A19 TD; -MAGN400T36 PO; -METF-450 PO; -METH20CP PO; -METO25TA93 PO; -POTA-23 PO; -TRAM-420 PO; -VALA100059 PO
--- NOTE | 2019-02-21 09:22 | ER Report ---
History and Physical Time Seen By MD: 09:18 HPI/ROS CHIEF COMPLAINT: back pain HISTORY OF PRESENT ILLNESS: Patient is a 64-year-old female here with complaints of left-sided lower back pain and rash. Patient reports that yesterday she developed an itching sensation in that distribution however this morning she developed acute onset of progressive worsening pain. Patient does present with a vesicular rash consistent with shingles. Denies fevers, chills, abdominal pain, nausea, vomiting. Patient is afebrile, hemodynamically stable at time of evaluation. REVIEW OF SYSTEMS: Constitutional: No fever, no chills. Eyes: No discharge. ENT: No sore throat. Cardiovascular: No chest pain, no palpitations. Respiratory: No cough, no shortness of breath. Gastrointestinal: No abdominal pain, no vomiting. Genitourinary: No hematuria. Musculoskeletal: + back pain. Skin: + Vesicular left lower back rash. Neurological: No headache. Allergies: Coded Allergies: Sulfa (Sulfonamide Antibiotics) (Verified Allergy, Severe, RASH, SWELLING, 02/21/19) cefazolin (Verified Allergy, Severe, RASH, SWELLING, 02/21/19) Penicillins (Verified Allergy, Unknown, RASH, SWELLING, 02/21/19) Home Meds Active Scripts Lidocaine (Lidocaine) 5 % Adh..patch, 1 PATCH TD Q12H PRN for PAIN, #20 PATCH Prov:LUIS MATHIS DO 02/21/19 Tramadol Hcl (TRAMADOL HCL) 50 Mg Tablet, 50 MG PO Q6H PRN for PAIN, #12 TAB 0 Refills Prov:LUIS MATHIS DO 02/21/19 Valacyclovir Hcl (VALACYCLOVIR) 1,000 Mg Tablet, 1000 MG PO TID for 7 Days, #21 TAB Prov:LUIS MATHIS DO 02/21/19 Azithromycin 250 Mg Tab (AZITHROMYCIN 250 MG TAB) 250 Mg Tablet, 1 TAB PO QDAY, #6 TAB Take 2 tabs today and then 1 tab a day until gone. Prov:LEYDI EDGE 01/16/19 Prednisone (PREDNISONE) 20 Mg Tablet, 20 MG PO BID, #10 TAB Prov:LEYDI EDGE 01/16/19 Prednisone (PREDNISONE) 20 Mg Tablet, 20 MG PO QDAY for reduce lung inflammation, #9 TAB 2 by mouth daily for 3 days then 1 by mouth daily for 3 days Prov:FLOYD MONTES DE OCA DO 12/24/18 Reported Medications Ipratropium [place] 17 Mcg/Act (ATROVENT HFA 17 MCG/ACT) 12.9 Gm Inh, 12.9 GM INH BID, INH 02/21/19 Flecainide Acetate (FLECAINIDE ACETATE) 100 Mg Tab, 100 MG PO BID, TAB 02/21/19 Bumetanide (BUMETANIDE) 1 Mg Tablet, 1 MG PO QDAY 02/21/19 Escitalopram Oxalate (LEXAPRO) 20 Mg Tablet, 10 MG PO QDAY, TAB 02/21/19 Atorvastatin Calcium (LIPITOR) 40 Mg Tablet, 1 TAB PO QDAY, TAB 02/21/19 Aripiprazole (ABILIFY) 10 Mg Tablet, 10 MG PO QDAY, TAB 02/21/19 Apixaban (ELIQUIS) 5 Mg Tablet, 5 MG PO BID 02/21/19 Insulin Detemir (LEVEMIR) 100 Unit/Ml Injs, 30 UNIT SUBQ BID 02/21/19 Hx Substance Use Disorder: No Constitutional Vital Sign - Last 24 Hours 02/21/19 09:27 Temp 97.7 Pulse 86 Resp 14 B/P (MAP) 162/89 Pulse Ox 93 O2 Delivery Nasal Cannula Physical Exam General Appearance: The patient is alert, has no immediate need for airway protection and no signs of toxicity. Uncomfortable appearing Eyes: Pupils equal and round no pallor or injection. ENT, Mouth: Mucous membranes are moist. Respiratory: There are no retractions, lungs are clear to auscultation. Cardiovascular: Regular rate and rhythm. Gastrointestinal: Abdomen is soft and non tender, no masses, bowel sounds normal. Neurological: No focal neurological deficits Skin: Left lower back rash, vesicular appearing, painful on palpation, dermatomal distribution Musculoskeletal: Neck is supple non tender. Extremities are nontender, nonswollen and have full range of motion. DIFFERENTIAL DIAGNOSIS: After history and physical exam differential diagnosis was considered for shingles, contact dermatitis, bacterial infection Medical Decision Making ED Course/Re-evaluation ED Course Patient is a 64-year-old female here with complaints of left lower back vesicular rash in dermatomal distribution consistent with shingles. Lidocaine adhesive patch was placed for topical anesthesia. Patient was given a prescription for valacyclovir as the rash is likely less than 72 hours since onset. Prescription for tramadol, valacyclovir, lidocaine adhesive patches were given. Return precautions provided. Close PCP follow-up recommended. Decision to Disposition Date: Feb 21, 2019 Decision to Disposition Time: 09:31 Depart Departure Latest Vital Signs Vital Signs Date Time Temp Pulse Resp B/P (MAP) Pulse Ox O2 Delivery O2 Flow Rate FiO2 02/21/19 09:27 97.7 86 14 162/89 93 Nasal Cannula Impression: Primary Impression: Shingles Condition: Improved Disposition: HOME OR SELF-CARE Referrals: LA LUCIA DO (PCP) New Scripts Lidocaine (Lidocaine) 5 % Adh..patch 1 PATCH TD Q12H PRN for PAIN, #20 PATCH Prov: LUIS MATHIS DO 02/21/19 Tramadol Hcl (TRAMADOL HCL) 50 Mg Tablet 50 MG PO Q6H PRN for PAIN, #12 TAB 0 Refills Prov: LUIS MATHIS DO 02/21/19 Valacyclovir Hcl (VALACYCLOVIR) 1,000 Mg Tablet 1000 MG PO TID for 7 Days, #21 TAB Prov: LUIS MATHIS DO 02/21/19 Patient Instructions: Shingles (ED) Additional Instructions: Please take valacyclovir 1 tablet 3 times daily for 7 days. You may apply lidocaine patches directly to the affected area for topical pain control. You may take 1 tramadol every 6-8 hours as needed for pain control. Please follow up closely with her family care provider in the next 3-5 days for repeat evaluation. Please return promptly if she develop worsening pain, fevers, inability to keep down food or fluids, abdominal pain. LUIS MATHIS DO Feb 21, 2019 09:22
[2019-02-21 09:27] VITALS: BP 162/89
[2019-02-21] MEDS ORDERED: LIDOCAINE 5% PATCH TP ONE (09:35)
[2019-02-21] MEDS ORDERED: BUME1TAB21 PO (09:38)
[2019-02-21] MEDS ORDERED: LEVI SUBQ (09:38)
[2019-02-21] MEDS ORDERED: IPR14R INH (09:38)
[2019-02-21] MEDS ORDERED: APIX5TAB PO (09:38)
[2019-02-21] MEDS ORDERED: ATOR40TA24 PO (09:38)
[2019-02-21] MEDS ORDERED: ESCI20TA38 PO (09:38)
[2019-02-21] MEDS ORDERED: FLE100 PO (09:38)
[2019-02-21] MEDS ORDERED: ARIP10TA4 PO (09:38)
[2019-02-21] MEDS ORDERED: VALA100059 PO (09:40)
[2019-02-21] MEDS ORDERED: TRAM-420 PO (09:40)
[2019-02-21] MEDS ORDERED: LIDO700A19 TD (09:40)
[2019-02-21] MEDS ORDERED: METO25TA93 PO (09:49)
[2019-02-21] MEDS ORDERED: METF-450 PO (09:49)
[2019-02-21] MEDS ORDERED: MAGN400T36 PO (09:49)
[2019-02-21] MEDS ORDERED: POTA-23 PO (09:49)
[2019-02-21] MEDS ORDERED: METH20CP PO (09:49)
[2019-02-21] MEDS ORDERED: LEVO-3 PO (09:49)
[2019-02-21] MEDS ORDERED: PATCH REMOVAL 1 EA TOP SCH (21:00)
== END 2019-02-21 10:00 | disposition home or self-care (01) ==
LOC: ER 09:29
DX: B02.9 Zoster without complications (principal)
CPT/HCPCS: 99282; A9270